=== PATIENT | female | born 1970 | race Caucasian/White ===

== ENCOUNTER 2017-08-02 12:31 | Day surgery (SDC) | payer OTHER ==
[~2017-08-02] VITALS: Ht 157.5 cm; Wt 52.6 kg
[2017-08-02 13:01] VITALS: BP 119/77
[2017-08-02 16:00] VITALS: BP 139/72
[2017-08-02 16:50] VITALS: BP 119/73
== END 2017-08-02 16:50 | disposition home or self-care (01) ==
LOC: SDC 12:31
PROC: 08B53ZZ Excision of Left Vitreous, Percutaneous Approach (ICD-10-PCS; principal; 2017-08-02)
PROC: 3E0C33Z Introduction of Anti-inflammatory into Eye, Percutaneous Approach (ICD-10-PCS; principal; 2017-08-02)
PROC: 3E0C329 Introduction of Other Anti-infective into Eye, Percutaneous Approach (ICD-10-PCS; principal; 2017-08-02)
PROC: 085F3ZZ Destruction of Left Retina, Percutaneous Approach (ICD-10-PCS; principal; 2017-08-02)
PROC: 08NF3ZZ Release Left Retina, Percutaneous Approach (ICD-10-PCS; principal; 2017-08-02)
DX: H35.372 Puckering of macula, left eye (principal); H35.342 Macular cyst, hole, or pseudohole, left eye; Z85.820 Personal history of malignant melanoma of skin
CPT/HCPCS: 93005; J0690; J3300